=== PATIENT | male | born 1975 | race Caucasian/White ===

== ENCOUNTER 2017-05-19 14:26 | Emergency (ER) | payer SELFPAY ==
[~2017-05-19] VITALS: Ht 160 cm; Wt 77.1 kg
[~2017-05-19 14:26] MED LIST: LORT5TAB PO; Z.0.NO CURRENT MEDS
[2017-05-19 14:32] VITALS: BP 147/84; PULSE 82; RESP 16; TEMP 97.9; O2SAT 99
[2017-05-19] MEDS ORDERED: CLINDAMYCIN INJ 900 MG in SODIUM CHLORIDE 0.9% INJ 100 ML IV ONE (15:15)
--- NOTE | 2017-05-19 15:19 | PD ---
HPI Chief Complaint: Edema Time Seen by Provider: 15:11 Travel History International Travel<30 days: No Contact w/Intl Traveler<30days: No Traveled to known affect area: No History of Present Illness HPI Patient presents with complaints of bilateral lower extremity pain and redness. States that on Saturday he stepped on some glass while not wearing shoes and went to the emergency room for a sore throat and further evaluation. States he did receive x-rays which did not reveal any glass and a prescription for amoxicillin to cover strep throat. States since then his bilateral feet have increased swelling pain and erythema. Denies nausea vomiting diarrhea or fever. PFSH Past Medical History Diminished Hearing: No Kidney Stones: Yes Neurologic: Yes (L4-L5 HERNIATED DISCS) Influenza Vaccination: No ?: Not Social History Alcohol Use: Yes (OCCAS) Tobacco Use: No (quit) Substance Use: No Allergies-Medications (Allergen,Severity, Reaction): Coded Allergies: No Known Allergies (Verified , 05/19/17) Reported Meds & Prescriptions Reported Meds & Active Scripts Active Clindamycin (Clindamycin HCl) 150 Mg Cap 300 Mg PO TID 7 Days Review of Systems General / Constitutional: Positive: Other (leg pain), No: Fever Eyes: No: Visual changes HENT: No: Headaches Cardiovascular: No: Chest Pain or Discomfort Respiratory: No: Shortness of Breath Gastrointestinal: No: Abdominal Pain Genitourinary: No: Dysuria Musculoskeletal: No: Pain Skin: No Rash Neurologic: No: Weakness Psychiatric: No: Depression Endocrine: No: Polydipsia Hematologic/Lymphatic: No: Easy Bruising Physical Exam Narrative GENERAL: Well-nourished, well-developed patient. SKIN: Focused skin assessment warm/dry. HEAD: Normocephalic. EYES: No scleral icterus. No injection or drainage. NECK: Supple, trachea midline. No JVD or lymphadenopathy. CARDIOVASCULAR: Regular rate and rhythm without murmurs, gallops, or rubs. RESPIRATORY: Breath sounds equal bilaterally. No accessory muscle use. GASTROINTESTINAL: Abdomen soft, non-tender, nondistended. MUSCULOSKELETAL: No cyanosis, or edema. BACK: Nontender without obvious deformity. No CVA tenderness. Bilateral lower extremities are mildly edematous and erythematous, plantar surface of both feet are black and dirty Data Data Last Documented VS Vital Signs Date Time Temp Pulse Resp B/P (MAP) Pulse Ox O2 Delivery O2 Flow Rate FiO2 05/19/17 14:32 97.9 82 16 147/84 (105) 99 Orders Orders Clindamycin Inj (Cleocin Inj) (05/19/17 15:15) Complete Blood Count With Diff (05/19/17 15:11) Basic Metabolic Panel (Bmp) (05/19/17 15:11) Labs Laboratory Tests Test 05/19/17 15:39 [facility] Medical Decision Making Medical Screen Exam Complete: Yes Emergency Medical Condition: Yes Differential Diagnosis Drug reaction, cellulitis, foreign body Narrative Course Assessment and plan discussed with patient and at bedside. Patient received IV antibiotics. Physician Communication Physician Communication case discussed and care transferred to Dr. Alarcon Diagnosis Primary Impression: Bilateral lower leg cellulitis Patient Instructions: General Instructions Additional Instructions: Encouraged to keep legs clean and dry, encouraged antibacterial soap and water 2 times per day. Follow-up with PCP. Return to emergency room with any onset of new symptoms. Med/Other Pt SpecificInfo: Prescription(s) given Scripts Hydrocodone-Acetaminophen (Hydrocodone-Acetaminophen) 5-325 mg Tab 1 TAB PO Q6H Y for PAIN, #20 TAB 0 Refills Prov: Adam Jiang MD 05/19/17 Clindamycin (Clindamycin) 150 Mg Cap 300 MG PO TID for Infection for 7 Days, CAP 0 Refills Prov: Adam Jiang MD 05/19/17 Disposition: 01 DISCHARGE HOME Condition: Good Adam Jiang MD May 19, 2017 15:19
[2017-05-19] MEDS ORDERED: CLIN1CAP5 PO (15:52)
[2017-05-19] MEDS ORDERED: HYDR-3516 PO (15:54)
[2017-05-19] MEDS ORDERED: ACETAMINOPHEN/HYDROcodone 325 MG/5 MG TAB PO ONE (16:00)
[2017-05-19 16:05] LABS: AUTOMATED NEUTROPHIL # 6.1 TH/MM3 (1.8-7.7); BASOPHIL % 0.3 % (0.0-2.0); EOSINOPHIL % 0.1 % (0.0-4.0); HEMATOCRIT 38.3 % (39.0-51.0); HEMO FLAGS DIFF FINAL; LYMPH % 23.1 % (9.0-44.0); LYMPHOCYTE # 2.1 TH/MM3 (1.0-4.8); MEAN CELL VOLUME 86.3 FL (80.0-100.0); MEAN CORPUSCULAR HEMOGLOBIN 29.6 PG (27.0-34.0); MEAN CORPUSCULAR HGB CONC 34.3 % (32.0-36.0); MONO % 9.3 % (0.0-8.0); NEUT % 67.2 % (16.0-70.0); PLATELET COUNT 297 TH/MM3 (150-450); RED BLOOD COUNT 4.43 MIL/MM3 (4.50-5.90); RED CELL DISTRIBUTION WIDTH 12.9 % (11.6-17.2)
[2017-05-19 16:13] LABS: POTASSIUM 3.5 MEQ/L (3.5-5.1)
[2017-05-19 16:16] LABS: BICARBONATE 28.1 MEQ/L (21.0-32.0)
--- NOTE | 2017-05-19 16:35 | PD ---
Physical Exam Date Seen by Provider: May 19, 2017 Time Seen by Provider: 16:34 Narrative 41-year-old male had been seen by Dr. Jiang initially. He is complaining of some redness and swelling of his feet. It appears he has cellulitis. His CBC and electrolytes are normal. He has been started on Cleocin and he'll be released with prescription for Cleocin and Lortab. He appears well and is stable for discharge Data Data Last Documented VS Vital Signs Date Time Temp Pulse Resp B/P (MAP) Pulse Ox O2 Delivery O2 Flow Rate FiO2 05/19/17 14:32 97.9 82 16 147/84 (105) 99 Orders Orders Clindamycin Inj (Cleocin Inj) (05/19/17 15:15) Complete Blood Count With Diff (05/19/17 15:11) Basic Metabolic Panel (Bmp) (05/19/17 15:11) Acetamin-Hydrocod 325-5 Mg ([place] 5-325 (05/19/17 16:00) Labs Laboratory Tests Test 05/19/17 15:39 White Blood Count 9.0 TH/MM3 Red Blood Count 4.43 MIL/MM3 Hemoglobin 13.1 GM/DL Hematocrit 38.3 % Mean Corpuscular Volume 86.3 FL Mean Corpuscular Hemoglobin 29.6 PG Mean Corpuscular Hemoglobin Concent 34.3 % Red Cell Distribution Width 12.9 % Platelet Count 297 TH/MM3 Mean Platelet Volume 8.1 FL Neutrophils (%) (Auto) 67.2 % Lymphocytes (%) (Auto) 23.1 % Monocytes (%) (Auto) 9.3 % Eosinophils (%) (Auto) 0.1 % Basophils (%) (Auto) 0.3 % Neutrophils # (Auto) 6.1 TH/MM3 Lymphocytes # (Auto) 2.1 TH/MM3 Monocytes # (Auto) 0.8 TH/MM3 Eosinophils # (Auto) 0.0 TH/MM3 Basophils # (Auto) 0.0 TH/MM3 CBC Comment DIFF FINAL Differential Comment Blood Urea Nitrogen 13 MG/DL Creatinine 0.81 MG/DL Random Glucose 113 MG/DL Calcium Level 9.0 MG/DL Sodium Level 138 MEQ/L Potassium Level 3.5 MEQ/L Chloride Level 103 MEQ/L Carbon Dioxide Level 28.1 MEQ/L Anion Gap 7 MEQ/L Estimat Glomerular Filtration Rate 104 ML/MIN [facility] Medical Record Reviewed: No Supervised Visit with LALIT: No Differential Diagnosis Differential includes cellulitis Narrative Course Patient will be treated with clindamycin Diagnosis Primary Impression: Bilateral lower leg cellulitis Patient Instructions: General Instructions Additional Instruction: Encouraged to keep legs clean and dry, encouraged antibacterial soap and water 2 times per day. Follow-up with PCP. Return to emergency room with any onset of new symptoms. Scripts Hydrocodone-Acetaminophen (Hydrocodone-Acetaminophen) 5-325 mg Tab 1 TAB PO Q6H Y for PAIN, #20 TAB 0 Refills Prov: Adam Jiang MD 05/19/17 Clindamycin (Clindamycin) 150 Mg Cap 300 MG PO TID for Infection for 7 Days, CAP 0 Refills Prov: Adam Jiang MD 05/19/17 Disposition: 01 DISCHARGE HOME Condition: Good Tadeo Webb MD May 19, 2017 16:35
== END 2017-05-19 17:26 | disposition home or self-care (01) ==
LOC: PHED 14:26
DX: L03.116 Cellulitis of left lower limb (principal); L03.115 Cellulitis of right lower limb
CPT/HCPCS: 80048; 85025; 96365